=== PATIENT | female | born 1960 | race Caucasian/White ===

== ENCOUNTER 2019-02-08 03:25 | Emergency (ER) | payer BC ==
[2019-02-08 03:48] VITALS: BP 126/76
--- NOTE | 2019-02-08 03:55 | EDM.PDOC ---
ED HPI GENERAL MEDICAL PROBLEM - General Chief Complaint: Back Pain or Injury Stated Complaint: Back Pain Time Seen by Provider: 02/08/19 03:50 Source of Information: Reports: Patient, Family (), Old Records ([facility] chart/EMR), Other ([facility]) History Limitations: Reports: No Limitations - History of Present Illness INITIAL COMMENTS - FREE TEXT/NARRATIVE: The patient was brought to the emergency room via private automobile by her for evaluation of progressive 9-10/10 mostly low back pain, however additional neck pain with nonspecific bilateral arm paresthesias after a minor fall at home at 20:00 hours on 02/05. The patient was on her wooden deck when she tripped over a porcelain frog landing on her buttocks with some mild back pain at that time. The following day she had actually no symptoms at all however has had progressive back pain and muscle spasms since that time. No history of head injury, loss of consciousness, change in mental status, neurological deficits, or other complaints or injuries. Patient did take Tylenol 650 mg at 03:00 hours this morning and ibuprofen 400 mg at 21:30 hours this evening. The patient denies any chest pain/pressure, heart flutter, dizziness, orthostasis, orthopnea, diaphoresis, paresthesias, recent decreased exercise tolerance, or any other anginal-type symptoms. No recent history of abdominal pain, heartburn, nausea, diarrhea, melena, gross hematochezia, or any food intolerance, including fatty foods, etc.. She denies any gross hematuria, colic, or other UTI symptoms. The patient also denies any recent fever, cough, wheezing, dyspnea, etc., although she was diagnosed with otitis externa on 02/05 with current medical therapy as below. Onset: Gradual Onset Date: 02/05/19 Onset Time: 20:00 Duration: Constant Location: Reports: Neck, Back, Radiates to (Arm paresthesias as above). Denies : Head, Face, Chest, Abdomen, Pelvis, Upper Extremity, Left, Upper Extremity, Right, Lower Extremity, Left, Lower Extremity, Right, Generalized Quality: Reports: Same as Previous Episode, Sharp, Throbbing Severity: Severe Improves with: Reports: Rest Worsens with: Reports: Movement Context: Reports: Trauma (As above) Associated Symptoms: Denies: Confusion, Chest Pain, Cough, Diaphoresis, Fever/ Chills, Headaches, Loss of Appetite, Malaise, Nausea/Vomiting, Rash, Seizure, Shortness of Breath, Syncope, Weakness Treatments PUBLICITY EXPERT: Reports: Acetaminophen, Cold Therapy, NSAIDS Neck Pain Score (Numeric/FACES): 10 - Related Data Allergies Allergy/AdvReac Type Severity Reaction Status Date / Time sulfamethoxazole Allergy Intermediate Hives Verified 02/08/19 03:28 [From Bactrim] trimethoprim [From Bactrim] Allergy Intermediate Hives Verified 02/08/19 03:28 hydrochlorothiazide Allergy Rash Verified 02/08/19 03:28 Home Meds: Home Meds Ascorbic Acid [Vitamin C] 500 mg PO DAILY 02/03/14 [History] Biotin 1 cap PO DAILY 02/03/14 [History] Calcium Carbonate/Vitamin D3 [Calcium 600 + Vit D 400] 1 tab PO DAILY 02/03/14 [ History] Multivitamin [Multi-Vitamin Daily] 1 tab PO DAILY 02/03/14 [History] Lisinopril 20 mg PO DAILY 12/19/14 [History] Aspirin [Halfprin] 81 mg PO DAILY #100 12/24/14 [Rx] Carvedilol [Coreg] 3.125 mg PO BID 12/24/14 [History] Acetaminophen [Tylenol] 650 mg PO Q4HR PRN 02/08/19 [History] Cholecalciferol (Vitamin D3) [Vitamin D3] 1,000 units PO DAILY 02/08/19 [History ] Cyclobenzaprine [Flexeril] 10 mg PO TID PRN #30 tab 02/08/19 [Rx] Ezetimibe 10 mg PO DAILY 02/08/19 [History] Furosemide 10 mg PO DAILY 02/08/19 [History] Levothyroxine [Synthroid] 25 mcg PO ACBREAKFAST 02/08/19 [History] Ofloxacin 2 drp EARLF BID 02/08/19 [History] Past Medical History HEENT History: Reports: Allergic Rhinitis, Impaired Vision, Other (See Below). Denies: Cataract, Glaucoma, Hard of Hearing, Macular Degeneration, Otitis Media , Retinal Detachment Other HEENT History: Patient wears glasses. Cardiovascular History: Reports: Arrhythmia, Heart Murmur, High Cholesterol, Hypertension, Other (See Below). Denies: Afib, CAD, IA Other Cardiovascular History: PACs and PVCs. Respiratory History: Reports: COPD, Other (See Below) Other Respiratory History: COPD by chest x-ray with no medical therapy. Gastrointestinal History: Reports: None. 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 Ovarian cysts requiring surgery as below. Full term delivery by C -section with significant preeclampsia during late . Menopause at age 40 with secondary atrophic vaginitis. Musculoskeletal History: Reports: Arthritis, Back Pain, Chronic, Osteoarthritis , Osteoporosis, Other (See Below). Denies: Fracture Other Musculoskeletal History: Chronic back pain secondary to previous fall at age 9 with secondary vertebral body displacements and back brace therapy required. Neurological History: Reports: Other (See Below) Other Neuro History: Mild cerebral atrophy and cerebromicrovascular disease by CT scan in 2014 as below. Psychiatric History: Reports: Anxiety, Depression Endocrine/Metabolic History: Reports: Hypothyroidism, Osteopenia, Vitamin D Deficiency, Other (See Below) Other Endocrine/Metabolic History: Hyponatremia Hematologic History: Reports: None. 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 GI Surgical History: Reports: Colonoscopy, Other (See Below) Other GI Surgeries/Procedures: Colonoscopy on 02/06/14. Female Surgical History: Reports: Section, D&C, Tubal Ligation, Other (See Below) Other Female Surgeries/Procedures: as above. D&C 2 secondary to SABs as above. Tubal ligation her 30s. Abdominal laparoscopic excision of ovarian cysts in 1983. - Past Imaging History Past Imaging History: Reports: Cardiac Echo (Stress echocardiogram on 01/19/15 was negative with ejection fraction of 60%), CAT Scan (CT of the brain on .), DEXA Scan (Last on 02/21/17), Mammogram (Last mammogram on 03/25/16.), Stress Testing (Stress echocardiogram as above) Social & Family History - Family History Cardiac: Reports: Arrhythmia, CAD, IA, Pacemaker, Stent, Other (See Below) Other Cardiac Family History: Maternal grandmother with IA requiring PTCA. Paternal grandfather with pacemaker. Psychiatric: Reports: Anxiety, Depression, Suicide Attempt, Other (See Below) Other Psychiatric Family History: Maternal aunt with anxiety depression disorder with maternal grandfather with successful suicide at age 75. Endocrine/Metabolic: Reports: Diabetes, type II, Hypothyroidism, Other (See Below) Other Endocrine/Metabolic Family History: Maternal grandmother with AODM. Paternal grandmother with hypothyroidism. - Tobacco Use Smoking Status *Q: Never Smoker Tobacco Use Within Last Twelve Months: No Used Tobacco, but Quit: No Smoking Cessation Information Provided To Patient: No Second Hand Smoke Exposure: No Second Hand Smoke Education Provided: No - Alcohol Use Alcohol Use History: Yes Days Per Week of Alcohol Use: 2 Number of Drinks Per Day: 1 Number of Drinks Per Day Comment: Usually wine. No previous DWIs, problems with alcohol abuse, etc. 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 ED EXAM,LOWER BACK PAIN/INJURY - Physical Exam Exam: See Below Exam Limited By: No Limitations General Appearance: Alert, WD/WN, No Apparent Distress Head: Atraumatic, Normocephalic. No: Facial Swelling, Facial Tenderness, Sinus Tenderness Neck: Normal Inspection, Supple, Non-Tender, Full Range of Motion. No: Lymphadenopathy (L), Lymphadenopathy (R), Thyromegaly Respiratory/Chest: No Respiratory Distress, Lungs Clear, Normal Breath Sounds, No Accessory Muscle Use, Chest Non-Tender. No: Pleural Rub, Retractions Cardiovascular: Normal Peripheral Pulses, Regular Rate, Rhythm, No Edema, No Gallop, No JVD, No Murmur, No Rub. No: Gallop/S3, Gallop/S4, Friction Rub GI/Abdominal: Normal Bowel Sounds, Soft, Non-Tender, No Organomegaly, No Distention, No Abnormal Bruit, No Mass, Pelvis Stable. No: Guarding (Female) Exam: Deferred Rectal (Female) Exam: Deferred Back Exam: Decreased Range of Motion (Minimal), Muscle Spasm (Minimal in mid lumbar region), Paraspinal Tenderness (Minimal in mid lumbar region with no significant cervical tenderness or spasms). No: CVA Tenderness (L), CVA Tenderness (R), Vertebral Tenderness Neurological: Alert, Normal Mood/Affect, Normal Dorsiflexion, CN II-XII Intact, Normal Plantar Flexion, Normal Gait, No Motor/Sensory Deficits, Oriented x 3 Psychiatric: Normal Affect, Normal Mood Skin Exam: Warm, Dry, Intact, Normal Color, No Rash. No: Diaphoretic, Wound/ Incision Lymphatic: No Adenopathy Course - Vital Signs Last Recorded V/S: Last Vital Signs Temp 36.4 C 02/08/19 03:48 Pulse 75 02/08/19 03:48 Resp 15 02/08/19 03:48 BP 126/76 02/08/19 03:48 Pulse Ox 100 02/08/19 03:48 Vital Signs - 24 hr 02/08/19 03:48 Temperature [ 36.4 C Temporal] Pulse, 75 Peripheral [ Right Pulse Oximetry] Respiratory 15 Rate Blood Pressure 126/76 [Right Upper Arm] O2 Sat by Pulse 100 Oximetry - Orders/Labs/Meds Labs: None Meds: Medications Discontinued Medications Generic Name Dose Route Start Last Admin Trade Name Freq PRN Reason Stop Dose Admin Cyclobenzaprine HCl 10 mg 02/08/19 04:03 02/08/19 04:15 Flexeril PO 02/08/19 04:04 10 mg ONETIME ONE Administration - Radiology Interpretation Free Text/Narrative:: None Departure - Departure Time of Disposition: 04:25 Disposition: Home, Self-Care 01 Condition: Good Clinical Impression: Mixed anxiety depressive disorder, Hypertension, Hypothyroidism, Osteoarthritis , COPD (chronic obstructive pulmonary disease), Hyperlipidemia, Low back pain - Discharge Information *PRESCRIPTION DRUG MONITORING PROGRAM REVIEWED*: Not Applicable *COPY OF PRESCRIPTION DRUG MONITORING REPORT IN PATIENT KESHAWN: Not Applicable Prescriptions: Cyclobenzaprine [Flexeril] 10 mg PO TID PRN #30 tab PRN Reason: Spasms Instructions: Cyclobenzaprine tablets, Acute Back Pain, Adult Referrals: Cordelia Vieira PA-C [Primary Care Provider] - Forms: ED Department Discharge Additional Instructions: 1. Follow up with your regular provider in 10-14 days as needed, if symptoms persist. Bring these discharge instructions with you to that visit.. 2. Tylenol 650 mg by mouth every 4 hours and/or OTC ibuprofen 2-3 tabs by mouth every 6 hours with food as directed./needed. You may stagger these medications for 48-72 hours only, which essentially means that you are receiving a pain medication about every 2 hours. 3. BenGay or equivalent, heating pad, and/or ice packs as directed. 4. Sedation precautions with Flexeril as discussed. 5. Increase activity as discussed. 6. Immediately after this visit verify that your cellular telephone's voicemail has been activated and is empty. Also verify that your home telephone 's answering machine is operating properly and has space to receive messages. Note that it is sometimes necessary for us to be able to contact you at a later date to discuss your medical care. 7. Please remember that we are ALWAYS here for you and want to answer any questions you may have. Feel free to call the hospital any time and we call you back JONN. - Problem List & Annotations (1) Low back pain SNOMED Code(s): 605243617 Code(s): M54.5 - LOW BACK PAIN Status: Acute Priority: High Onset Date : 02/05/19 Annotation/Comment:: Known history of chronic low back pain in the past. Various therapeutic options were discussed with the patient and her . The patient does not wish to have an IM Ativan and/or IM Toradol injection. Flexeril given in the emergency room, which will be continued as needed as per discharge instructions. Otherwise symptomatic relief. She does not want a work excuse. Secondary to symptom-free period as above no direct indications for x-rays at this time with the patient in agreement with this treatment plan. Qualifiers: Chronicity: acute Back pain laterality: bilateral Sciatica presence: without sciatica Qualified Code(s): M54.5 - Low back pain (2) Osteoarthritis SNOMED Code(s): 224314507 Code(s): M19.90 - UNSPECIFIED OSTEOARTHRITIS, UNSPECIFIED SITE Status: Acute Priority: Medium Annotation/Comment:: Otherwise stable by patient history with OTC ibuprofen use Qualifiers: Osteoarthritis location: multiple joints Osteoarthritis type: primary Qualified Code(s): M15.0 - Primary generalized (osteo)arthritis (3) Mixed anxiety depressive disorder SNOMED Code(s): 668587633 Code(s): F41.8 - OTHER SPECIFIED ANXIETY DISORDERS Status: Acute Priority : Medium Annotation/Comment:: Stable by history. (4) Hyperlipidemia SNOMED Code(s): 35975621 Code(s): E78.5 - HYPERLIPIDEMIA, UNSPECIFIED Status: Chronic Priority: Medium Annotation/Comment:: Currently under therapy Qualifiers: Hyperlipidemia type: unspecified Qualified Code(s): E78.5 - Hyperlipidemia , unspecified (5) Hypertension SNOMED Code(s): 94641405 Code(s): I10 - ESSENTIAL (PRIMARY) HYPERTENSION Status: Acute Priority: High Annotation/Comment:: Currently under therapy. Stable in the emergency room and by history. Qualifiers: Hypertension type: essential hypertension Qualified Code(s): I10 - Essential (primary) hypertension (6) Hypothyroidism SNOMED Code(s): 13524509 Code(s): E03.9 - HYPOTHYROIDISM, UNSPECIFIED Status: Chronic Priority: Medium Onset Date: 12/19/14 Annotation/Comment:: Currently under therapy Qualifiers: Hypothyroidism type: acquired Qualified Code(s): E03.9 - Hypothyroidism, unspecified - Problem List Review Problem List Initiated/Reviewed/Updated: Yes - Assessment/Plan Assessment:: As above Plan: As above. Extensive precautions were given to the patient and her , who are in agreement with the treatment plan. See Patient Instructions for further treatment and plan.
[2019-02-08] MEDS ORDERED: Cyclobenzaprine 10 MG Tab PO ONE (04:03)
== END 2019-02-08 04:25 | disposition home or self-care (01) ==
LOC: LL.ED 03:25
DX: M54.5 Low back pain (principal); M19.90 Unspecified osteoarthritis, unspecified site; F41.8 Other specified anxiety disorders; E78.5 Hyperlipidemia, unspecified; I10 Essential (primary) hypertension; E03.9 Hypothyroidism, unspecified; J44.9 Chronic obstructive pulmonary disease, unspecified; E78.00 Pure hypercholesterolemia, unspecified; Z79.82 Long term (current) use of aspirin; Z79.899 Other long term (current) drug therapy; Z88.2 Allergy status to sulfonamides; Z88.1 Allergy status to other antibiotic agents; Z88.8 Allergy status to other drugs, medicaments and biological substances
CPT/HCPCS: 99283; A9270

== ENCOUNTER 2019-12-05 11:43 | Observation (INO) | payer BC ==
[2019-12-05] MEDS ORDERED: Meclizine 25 MG Tab PO ONE (12:03)
[2019-12-05] MEDS ORDERED: Aspirin 81 MG Tab.Chew PO ONE (12:04)
--- NOTE | 2019-12-05 12:35 | EDM.PDOC ---
ED HPI GENERAL MEDICAL PROBLEM - General Chief Complaint: Cardiovascular Problem Stated Complaint: chest pain dizziness Time Seen by Provider: 12/05/19 12:01 Source of Information: Reports: Patient History Limitations: Reports: No Limitations - History of Present Illness INITIAL COMMENTS - FREE TEXT/NARRATIVE: Patient came to ER for evaluation after experiencing sudden episode of dizziness at home, felt like she was going to pass out. No previous history of similar sensation. Head rotation does not affect lightheadedness. [place] normal this morning when she first woke up. Has been having intermittent chest tightness/burning pain on both sides of sternum for around 3 days. She thought it might be due to her chronic neck and back pain which has been flaring up for 3 weeks. Has been seen by chiropractors and Ortho for the head and back pain and she says that nothing else specifically could be done for it. Nothing specific triggers the chest discomfort. Changes in position/breathing/ eating/burping have no effect on it. No fevers/chills. Eating well. No recent med changes HEENT positive for clear runny nose/eyes which she attributes to allergies. Had brief headache earlier today, now gone. No visual changes/hearing changes. No obvious sore throat/URI complaints. Resp: negative for cough/wheeze/SOB that is new. History of chronic mild intermittent cough. CV: negative for palpitations. Positive for above complaint of chest discomfort and lightheadedness GI negative for acute changes/nausea/emesis/GERD complaints/bowel changes. negative for UTI sx/changes MS: negative for new limb pain/weakness/paresthesias. Skin negative for acute changes. Hx HTN, no other cardiac diagnoses. FamHX + for maternal grandmother who had OH. chest Pain Score (Numeric/FACES): 5 - Related Data Allergies Allergy/AdvReac Type Severity Reaction Status Date / Time sulfamethoxazole Allergy Intermediate Hives Verified 12/05/19 11:43 [From Bactrim] trimethoprim [From Bactrim] Allergy Intermediate Hives Verified 12/05/19 11:43 hydrochlorothiazide Allergy Rash Verified 12/05/19 11:43 Home Meds: Home Meds Ascorbic Acid [Vitamin C] 500 mg PO DAILY 02/03/14 [History] Biotin 1 cap PO DAILY 02/03/14 [History] Calcium Carbonate/Vitamin D3 [Calcium 600 + Vit D 400] 1 tab PO DAILY 02/03/14 [ History] Multivitamin [Multi-Vitamin Daily] 1 tab PO DAILY 02/03/14 [History] Lisinopril 20 mg PO DAILY 12/19/14 [History] Aspirin [Halfprin] 81 mg PO DAILY #100 12/24/14 [Rx] Carvedilol [Coreg] 3.125 mg PO BID 12/24/14 [History] Acetaminophen [Tylenol] 650 mg PO Q4HR PRN 02/08/19 [History] Cholecalciferol (Vitamin D3) [Vitamin D3] 1,000 units PO DAILY 02/08/19 [History ] Cyclobenzaprine [Flexeril] 10 mg PO TID PRN #30 tab 02/08/19 [Rx] Ezetimibe 10 mg PO DAILY 02/08/19 [History] Furosemide 10 mg PO DAILY 02/08/19 [History] Levothyroxine [Synthroid] 25 mcg PO ACBREAKFAST 02/08/19 [History] Ofloxacin 2 drp EARLF BID 02/08/19 [History] Past Medical History HEENT History: Reports: Allergic Rhinitis, Impaired Vision, Other (See Below). Denies: Cataract, Glaucoma, Hard of Hearing, Macular Degeneration, Otitis Media , Retinal Detachment Other HEENT History: Patient wears glasses. Cardiovascular History: Reports: Arrhythmia, Heart Murmur, High Cholesterol, Hypertension, Other (See Below). Denies: Afib, CAD, OH Other Cardiovascular History: PACs and PVCs. Respiratory History: Reports: COPD, Other (See Below) Other Respiratory History: COPD by chest x-ray with no medical therapy. Gastrointestinal History: Reports: None. 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 Ovarian cysts requiring surgery as below. Full term delivery by C -section with significant preeclampsia during late . Menopause at age 40 with secondary atrophic vaginitis. Musculoskeletal History: Reports: Arthritis, Back Pain, Chronic, Osteoarthritis , Osteoporosis, Other (See Below). Denies: Fracture Other Musculoskeletal History: Chronic back pain secondary to previous fall at age 9 with secondary vertebral body displacements and back brace therapy required. Neurological History: Reports: Other (See Below) Other Neuro History: Mild cerebral atrophy and cerebromicrovascular disease by CT scan in 2015 as below. Psychiatric History: Reports: Anxiety, Depression Endocrine/Metabolic History: Reports: Hypothyroidism, Osteopenia, Vitamin D Deficiency, Other (See Below) Other Endocrine/Metabolic History: Hyponatremia Hematologic History: Reports: None. 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 GI Surgical History: Reports: Colonoscopy, Other (See Below) Other GI Surgeries/Procedures: Colonoscopy on 02/06/14. Female Surgical History: Reports: Section, D&C, Tubal Ligation, Other (See Below) Other Female Surgeries/Procedures: as above. D&C 2 secondary to SABs as above. Tubal ligation her 30s. Abdominal laparoscopic excision of ovarian cysts in 1983. - Past Imaging History Past Imaging History: Reports: Cardiac Echo (Stress echocardiogram on 01/19/15 was negative with ejection fraction of 60%), CAT Scan (CT of the brain on .), DEXA Scan (Last on 02/21/17), Mammogram (Last mammogram on 03/25/16.), Stress Testing (Stress echocardiogram as above) Social & Family History - Family History Cardiac: Reports: Arrhythmia, CAD, OH, Pacemaker, Stent, Other (See Below) Other Cardiac Family History: Maternal grandmother with OH requiring PTCA. Paternal grandfather with pacemaker. Psychiatric: Reports: Anxiety, Depression, Suicide Attempt, Other (See Below) Other Psychiatric Family History: Maternal aunt with anxiety depression disorder with maternal grandfather with successful suicide at age 75. Endocrine/Metabolic: Reports: Diabetes, type II, Hypothyroidism, Other (See Below) Other Endocrine/Metabolic Family History: Maternal grandmother with AODM. Paternal grandmother with hypothyroidism. 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 ED EXAM, GENERAL - Physical Exam Exam: See Below Exam Limited By: No Limitations General Appearance: Alert, WD/WN, No Apparent Distress Eye Exam: Bilateral Eye: EOMI, PERRL Ears: Normal External Exam, Normal Canal, Hearing Grossly Normal, Normal TMs Nose: No: Nasal Deformity, Nasal Swelling, Nasal Drainage Throat/Mouth: Normal Lips, Normal Voice, No Airway Compromise Head: Atraumatic, Normocephalic Neck: Normal Inspection, Supple, Non-Tender, Full Range of Motion. No: Lymphadenopathy (L), Lymphadenopathy (R) Respiratory/Chest: No Respiratory Distress, Lungs Clear, Normal Breath Sounds, No Accessory Muscle Use, Chest Non-Tender Cardiovascular: Regular Rate, Rhythm, No Murmur GI/Abdominal: Normal Bowel Sounds, Soft, Non-Tender, No Distention (Female) Exam: Deferred Rectal (Female) Exam: Deferred Back Exam: No: CVA Tenderness (L), CVA Tenderness (R), Muscle Spasm Extremities: Normal Range of Motion, Non-Tender, No Pedal Edema, Normal Capillary Refill Neurological: Alert, Oriented, CN II-XII Intact, Normal Cognition, Normal Gait, No Motor/Sensory Deficits Psychiatric: Normal Affect, Normal Mood Skin Exam: Warm, Dry, Intact, Normal Color Lymphatic: No Adenopathy EKG INTERPRETATION EKG Date: 12/05/19 Time: 11:50 Rhythm: NSR Rate (Beats/Min): 67 [place]: Normal P-Wave: Present QRS: Normal ST-T: Normal QT: Normal Comparison: Change From Previous EKG (Previous EKG showed incomplete RBBB) Course - Vital Signs Last Recorded V/S: Last Vital Signs Temp Pulse 66 12/05/19 11:49 Resp 14 12/05/19 11:49 BP 141/76 H 12/05/19 11:49 Pulse Ox 98 12/05/19 11:49 - Orders/Labs/Meds Orders: Active Orders 24 hr Category Date Time Status EKG Documentation Completion [RC] ASDIRECTED Care 12/05/19 11:54 Active BMP [BASIC METABOLIC PANEL,BMP] [CHEM] Stat Lab 12/05/19 11:55 Ordered CBC WITH AUTO DIFF [HEME] Stat Lab 12/05/19 11:54 Ordered CK W CKMB [CHEM] Stat Lab 12/05/19 11:55 Ordered D-DIMER QUANTITATIVE [COAG] Stat Lab 12/05/19 12:01 Ordered MG [MAGNESIUM] [CHEM] Stat Lab 12/05/19 12:01 Ordered PRO B-TYPE NATRIUR PEPT,BNPPRO [CHEM] Stat Lab 12/05/19 12:02 Ordered TROPONIN I [CHEM] Stat Lab 12/05/19 11:55 Ordered EKG 12 Lead [EK] Stat Ther 12/05/19 11:54 Ordered - Radiology Interpretation Free Text/Narrative:: No focal acute changes noted on review of chest film - Re-Assessments/Exams Free Text/Narrative Re-Assessment/Exam: 12/05/19 12:56 Cardiac workup initiated given complaint of chest discomfort and lightheaded/ near-syncopal sensation. EKG unremarkable. Vital signs stable, however BP continues to be elevated compared to patient's self reported normal level of 115-120/70s. Troponin/DDimer normal. No focal findings on exam. Patient continued to say that she felt a bit funny and pointed to top of head, indicating light headed sensation. Again, movement did not affect this. She denied feeling vaso-vagal however. Plan is to admit and observe for changes. Serial Troponins. Cardiac monitoring. Departure - Departure Time of Disposition: 13:00 Disposition: Refer to Observation Condition: Good Clinical Impression: Atypical chest pain, Lightheadedness Sepsis Event Note - Evaluation Sepsis Screening Result: No Definite Risk - Focused Exam Vital Signs: Vital Signs Pulse Resp BP Pulse Ox 12/05/19 11:49 66 14 141/76 H 98 Date Exam was Performed: 12/05/19 Time Exam was Performed: 12:02 - Problem List & Annotations (1) Atypical chest pain SNOMED Code(s): 999672897 Code(s): R07.89 - OTHER CHEST PAIN Status: Acute Priority: High Onset Date: ~12/02/19 Annotation/Comment:: Anterior chest discomfort, bilateral, located at lateral margins of sternum. Episodic. No specific triggers. Nothing makes it particularly better. May be musculo-skeletal in nature, related to patient's chronic neck and upper back pain which has flared over the last 3 weeks. No obvious GI characteritics. Unable to reproduce with palpation. Negative Troponin. Normal EKG. Admit and perform serial Troponin measurements and continue cardiac monitoring to more fully rule out cardiac contribution. (2) Lightheadedness SNOMED Code(s): 012472891 Code(s): R42 - DIZZINESS AND GIDDINESS Status: Acute Priority: High Onset Date: ~12/05/19 Annotation/Comment:: Unable to reproduce/exacerbate with head rotation. Not triggered by positional changes of head/neck. No specific cause identified at this time. Has improved since first noted by patient. Mild hyponatremia identified. Hx intermittent PACs/PVCs but not present when patient complaining of lightheaded sensation. Patient declined head CT at this time to look for acute intracranial changes. Admit observation. Watch for further changes. Telemetry. IV fluids. (3) Hyponatremia SNOMED Code(s): 94338157 Code(s): E87.1 - HYPO-OSMOLALITY AND HYPONATREMIA Status: Acute Priority : Medium Onset Date: ~12/05/19 Annotation/Comment:: Mild. IV fluids ordered. Recheck level tomorrow. (4) Mixed anxiety depressive disorder SNOMED Code(s): 187055375 Code(s): F41.8 - OTHER SPECIFIED ANXIETY DISORDERS Status: Chronic Priority: Low Annotation/Comment:: Stable by history. Patient denies feeling increased anxiety recently. (5) Hyperlipidemia SNOMED Code(s): 29986121 Code(s): E78.5 - HYPERLIPIDEMIA, UNSPECIFIED Status: Chronic Priority: Low Annotation/Comment:: Currently under therapy Qualifiers: Hyperlipidemia type: unspecified Qualified Code(s): E78.5 - Hyperlipidemia , unspecified (6) Osteoarthritis SNOMED Code(s): 110348148 Code(s): M19.90 - UNSPECIFIED OSTEOARTHRITIS, UNSPECIFIED SITE Status: Acute Priority: Medium Annotation/Comment:: Increase in baseline neck and upper back pain for three weeks. No specific trigger. Has been seen by chiropractors and Ortho in past, told nothing else could be done for her discomfort. Qualifiers: Osteoarthritis location: multiple joints Osteoarthritis type: primary (7) Hypertension SNOMED Code(s): 34882586 Code(s): I10 - ESSENTIAL (PRIMARY) HYPERTENSION Status: Acute Priority: High Annotation/Comment:: Mildly elevated over usual baseline today. Normally runs 115-120/70s per self report. Observe for changes. Qualifiers: Hypertension type: essential hypertension Qualified Code(s): I10 - Essential (primary) hypertension (8) Hypothyroidism SNOMED Code(s): 10224396 Code(s): E03.9 - HYPOTHYROIDISM, UNSPECIFIED Status: Chronic Priority: Low Onset Date: 12/19/14 Annotation/Comment:: Currently under therapy. Normal TSH today Qualifiers: Hypothyroidism type: acquired Qualified Code(s): E03.9 - Hypothyroidism, unspecified - Problem List Review Problem List Initiated/Reviewed/Updated: Yes - My Orders Last 24 Hours: My Active Orders 12/05/19 11:54 EKG Documentation Completion [RC] ASDIRECTED CBC WITH AUTO DIFF [HEME] Stat EKG 12 Lead [EK] Stat 12/05/19 11:55 BMP [BASIC METABOLIC PANEL,BMP] [CHEM] Stat CK W CKMB [CHEM] Stat TROPONIN I [CHEM] Stat 12/05/19 12:01 D-DIMER QUANTITATIVE [COAG] Stat MG [MAGNESIUM] [CHEM] Stat 12/05/19 12:02 PRO B-TYPE NATRIUR PEPT,BNPPRO [CHEM] Stat - Assessment/Plan Admission H&P: Please use this note as an admission H&P Last 24 Hours: My Active Orders 12/05/19 11:54 EKG Documentation Completion [RC] ASDIRECTED CBC WITH AUTO DIFF [HEME] Stat EKG 12 Lead [EK] Stat 12/05/19 11:55 BMP [BASIC METABOLIC PANEL,BMP] [CHEM] Stat CK W CKMB [CHEM] Stat TROPONIN I [CHEM] Stat 12/05/19 12:01 D-DIMER QUANTITATIVE [COAG] Stat MG [MAGNESIUM] [CHEM] Stat 12/05/19 12:02 PRO B-TYPE NATRIUR PEPT,BNPPRO [CHEM] Stat Assessment:: as above. Stable for general supervision/observation. Plan: as above.
[2019-12-05 12:44] LABS: CHLORIDE,CL 94 mmol/L (98-107); SODIUM,NA 130 mmol/L (136-145)
[2019-12-05] MEDS ORDERED: Diazepam 5 MG Tab PO ONE (14:24)
[2019-12-05] MEDS ORDERED: Acetaminophen 325 MG Tab PO PRN (14:24)
[2019-12-05] MEDS ORDERED: traMADol 50 MG Tab PO PRN (14:30)
[2019-12-05] MEDS: Sodium Chloride 0.9% 1,000 ML IV SCH (14:47)
[2019-12-05] MEDS: Carvedilol 3.125 MG Tab PO SCH (17:24)
[2019-12-05] MEDS ORDERED: Meclizine 25 MG Tab PO PRN (19:00)
[2019-12-05] MEDS ORDERED: Ezetimibe 10 MG Tab PO SCH (20:00)
[2019-12-05] MEDS: Sodium Chloride 0.9% 10 ML Syringe FLUSH SCH (20:00)
[2019-12-06] MEDS: Sodium Chloride 0.9% 1,000 ML IV SCH (00:57)
[2019-12-06] MEDS ORDERED: Levothyroxine 25 MCG Tab PO SCH (07:30)
[2019-12-06 07:58] LABS: CHLORIDE,CL 103 mmol/L (98-107); SODIUM,NA 136 mmol/L (136-145)
[2019-12-06] MEDS ORDERED: BIOTIN PO SCH (08:00)
[2019-12-06] MEDS ORDERED: Lisinopril 20 MG Tab PO SCH (08:00)
[2019-12-06] MEDS ORDERED: Furosemide 20 MG Tab PO SCH (08:00)
[2019-12-06] MEDS ORDERED: Aspirin 81 MG Tab.EC PO SCH (08:00)
[2019-12-06] MEDS: Sodium Chloride 0.9% 10 ML Syringe FLUSH SCH (08:32)
[2019-12-06] MEDS: Carvedilol 3.125 MG Tab PO SCH (08:34)
[2019-12-06 08:36] VITALS: BP 109/69; PULSE 70
[2019-12-06] MEDS ORDERED: Magnesium Oxide 400 MG Tab PO ONE (11:26)
--- NOTE | 2019-12-06 11:32 | PCM.DCSUM1 ---
Discharge Summary - Hospital Course Brief History: Admitted observation due to complaints of dizziness and atypical chest pain Diagnosis: Stroke: No - Discharge Data Discharge Date: 12/06/19 Discharge Disposition: Home, Self-Care 01 Condition: Good - Referral to Home Health Primary Care Physician: PCP None - Discharge Diagnosis/Problem(s) (1) Atypical chest pain SNOMED Code(s): 216045155 ICD Code: R07.89 - OTHER CHEST PAIN Status: Acute Priority: High Current Visit: No Onset Date: ~12/02/19 Problem Details: Improved today. Anterior chest discomfort, bilateral, located at lateral margins of sternum. Episodic. No specific triggers. Nothing makes it particularly better. May be musculo-skeletal/radicular in nature, related to patient's chronic neck and upper back pain which has flared over the last 3 weeks. No obvious GI characteritics. Unable to reproduce with palpation. Negative Troponins. Normal EKGs. To follow up closely with primary provider. (2) Lightheadedness SNOMED Code(s): 271350980 ICD Code: R42 - DIZZINESS AND GIDDINESS Status: Acute Priority: High Current Visit: No Onset Date: ~12/05/19 Problem Details: Resolved today after patient received IV fluids. Suspect related to hyponatremia which improved s/p IV fluids. Patient had similar symptoms in past when hyponatremic. At that time she was hospitalized in [place]. (3) Hyponatremia SNOMED Code(s): 94495669 ICD Code: E87.1 - HYPO-OSMOLALITY AND HYPONATREMIA Status: Acute Priority : Medium Current Visit: No Onset Date: ~12/05/19 Problem Details: Level normalized today after receiving IV fluids (4) Mixed anxiety depressive disorder SNOMED Code(s): 270110091 ICD Code: F41.8 - OTHER SPECIFIED ANXIETY DISORDERS Status: Acute Priority: Low Current Visit: No Problem Details: Stable by history. Patient denies feeling increased anxiety recently. (5) Hyperlipidemia SNOMED Code(s): 16527812 ICD Code: E78.5 - HYPERLIPIDEMIA, UNSPECIFIED Status: Chronic Priority: Low Current Visit: No Problem Details: Currently under therapy Qualifiers: Hyperlipidemia type: unspecified Qualified Code(s): E78.5 - Hyperlipidemia , unspecified (6) Osteoarthritis SNOMED Code(s): 589213871 ICD Code: M19.90 - UNSPECIFIED OSTEOARTHRITIS, UNSPECIFIED SITE Status: Acute Priority: Medium Current Visit: No Problem Details: Increase in baseline neck and upper back pain for three weeks. No specific trigger. Has been seen by chiropractors and Ortho in past, told nothing else could be done for her discomfort. Qualifiers: Osteoarthritis location: multiple joints Osteoarthritis type: primary Qualified Code(s): M89.49 - Other hypertrophic osteoarthropathy, multiple sites (7) Hypertension SNOMED Code(s): 56021440 ICD Code: I10 - ESSENTIAL (PRIMARY) HYPERTENSION Status: Acute Priority: High Current Visit: No Problem Details: Mildly elevated over usual baseline today. Normally runs 115-120/70s per self report. Observe for changes. Qualifiers: Hypertension type: essential hypertension Qualified Code(s): I10 - Essential (primary) hypertension (8) Hypothyroidism SNOMED Code(s): 05402363 ICD Code: E03.9 - HYPOTHYROIDISM, UNSPECIFIED Status: Chronic Priority: Low Current Visit: No Onset Date: 12/19/14 Problem Details: Currently under therapy. Normal TSH today Qualifiers: Hypothyroidism type: acquired Qualified Code(s): E03.9 - Hypothyroidism, unspecified - Patient Summary/Data Hospital Course: Patient monitored by telemetry. IV fluids to correct hyponatremia. Labs repeated this morning, including Troponin. WBC and Na normalized. Patient's dizziness/lightheadedness fully resolved. Still has some intermittent discomfort along sides of sternum bilaterally. No new complaints/changes. OK to discharge home. Close follow up with primary provider regarding ongoing sodium levels/rechecks and pain complaints. - Patient Instructions Diet: Anti-Inflammatory (feel free to add sea salt liberally. ) Activity: As Tolerated Driving: May Drive Today Showering/Bathing: May Shower Other/Special Instructions: Continue to routinely monitor your electrolyte levels, especially sodium so that you can avoid future similar episodes! Follow up with your primary provider next week to get them rechecked and also to see how your neck/back/sternal discomfort is doing. Return to the ER as needed if you have sudden worsening problems/new developments. - Discharge Plan *PRESCRIPTION DRUG MONITORING PROGRAM REVIEWED*: Not Applicable *COPY OF PRESCRIPTION DRUG MONITORING REPORT IN PATIENT KESHAWN: Not Applicable Home Medications: Home Meds Ascorbic Acid [Vitamin C] 500 mg PO DAILY 02/03/14 [History] Biotin 1 cap PO DAILY 02/03/14 [History] Calcium Carbonate/Vitamin D3 [Calcium 600 + Vit D 400] 1 tab PO DAILY 02/03/14 [ History] Multivitamin [Multi-Vitamin Daily] 1 tab PO DAILY 02/03/14 [History] Lisinopril 20 mg PO DAILY 12/19/14 [History] Aspirin [Halfprin] 81 mg PO DAILY #100 12/24/14 [Rx] Carvedilol [Coreg] 3.125 mg PO BID 12/24/14 [History] Acetaminophen [Tylenol] 650 mg PO Q4HR PRN 02/08/19 [History] Cholecalciferol (Vitamin D3) [Vitamin D3] 1,000 units PO DAILY 02/08/19 [History ] Cyclobenzaprine [Flexeril] 10 mg PO TID PRN #30 tab 02/08/19 [Rx] Ezetimibe 10 mg PO BEDTIME 02/08/19 [History] Furosemide 10 mg PO DAILY 02/08/19 [History] Levothyroxine [Synthroid] 25 mcg PO ACBREAKFAST 02/08/19 [History] Forms: ED Department Discharge Referrals: PCP,None [Primary Care Provider] - - Discharge Summary/Plan Comment DC Time >30 min.: No - General Info Date of Service: 12/06/19 Admission Dx/Problem (Free Text: Atypical chest pain, dizziness, hyponatremia Subjective Update: Patient feels much better today. Would like to go home. Functional Status: Reports: Pain Controlled, Tolerating Diet, Ambulating, Urinating. Denies: New Symptoms - Review of Systems General: Reports: No Symptoms HEENT: Reports: No Symptoms, Glasses Pulmonary: Reports: No Symptoms Cardiovascular: Reports: Other (mild intermittent pain lateral margins sternum) . Denies: Palpitations, Dyspnea on Exertion, Orthopnea, PND, Edema, Lightheadedness Gastrointestinal: Reports: No Symptoms Genitourinary: Reports: No Symptoms Musculoskeletal: Reports: Neck Pain (chronic), Back Pain (chronic/upper back) Skin: Reports: No Symptoms Neurological: Reports: No Symptoms Psychiatric: Reports: No Symptoms - Patient Data Vitals - Most Recent: Last Vital Signs Temp 36.7 C 12/06/19 06:00 Pulse 70 12/06/19 08:34 Resp 14 12/06/19 06:00 BP 109/69 04/24/20 08:34 Pulse Ox 96 12/06/19 06:00 Orthostatic Blood Pressure [ 125/83 Standing] Orthostatic Blood Pressure [ 140/85 Sitting] Orthostatic Blood Pressure [ 142/84 Supine] Weight - Most Recent: 59.148 kg I&O - Last 24 hours: Intake & Output 12/05/19 12/06/19 12/06/19 22:59 06:59 14:59 Intake Total 347 1058 Balance 347 1058 Lab Results - Last 24 hrs: Laboratory Results - last 24 hr 12/05/19 12/05/19 12/05/19 Range/Units 12:05 12:05 12:05 WBC 10.4 H (4.0-10.2) K/uL RBC 3.74 L (3.77-5.09) M/uL Hgb 12.2 D (11.7-15.5) g/dL Hct 35.2 (34.0-46.0) % MCV 94.1 (84.0-98.0) fL MCH 32.6 (28.2-33.3) pg MCHC 34.7 (31.7-36.0) g/dL RDW 13.0 (11.2-14.1) % Plt Count 409 H (150-350) K/uL Neut % (Auto) 61.6 (45.0-80.0) % Lymph % (Auto) 29.8 (10.0-50.0) % [place] % (Auto) 6.5 (2.0-14.0) % Eos % (Auto) 1.7 (0.0-5.0) % Baso % (Auto) 0.4 (0.0-2.0) % Neut # (Auto) 6.39 (1.40-7.00) K/uL Lymph # (Auto) 3.09 (0.50-3.50) K/uL [place] # (Auto) 0.67 (0.00-1.00) K/uL Eos # (Auto) 0.18 (0.00-0.50) K/uL Baso # (Auto) 0.04 (0.00-0.20) K/uL D-Dimer, Quantitative < 100 (0-400) ng/mL Sodium 130 L (136-145) mmol/L Potassium 4.1 (3.5-5.1) mmol/L Chloride 94 L (98-107) mmol/L Carbon Dioxide 22.1 (21.0-32.0) mmol/L BUN 21 H (7-18) mg/dL Creatinine 0.56 (0.51-1.17) mg/dL Est Cr Clr Drug Dosing 97.33 mL/min Estimated GFR (MDRD) > 60 mL/min Glucose 124 H (74-106) mg/dL Calcium 9.2 (8.5-10.1) mg/dL Magnesium 2.0 (1.8-2.4) mg/dL Creatine Kinase 94 (26-308) U/L Creatine Kinase Index 1.8 (0.0-2.5) % CK-MB (CK-2) 1.70 (0.00-3.60) ng/mL Troponin I 0.000 (0.000-0.056) ng/mL NT-Pro-B Natriuret Pep (0-125) pg/mL TSH, Ultra Sensitive (0.358-3.740) mIU/mL Specimen Type Urine Color Urine Appearance Urine pH (5.0-9.0) Ur Specific [place] (1.005-1.030) Urine Protein (NEGATIVE) mg/dL Urine Glucose (UA) (NEGATIVE) mg/dL Urine Ketones (NEGATIVE) mg/dL Urine Occult Blood (NEGATIVE) Urine Nitrite (NEGATIVE) Urine Bilirubin (NEGATIVE) Urine Urobilinogen (0.2-1.0) E.U./dL Ur Leukocyte Esterase (NEGATIVE) Urine RBC /HPF Urine WBC /HPF Urine Bacteria (NONE TO FEW) /HPF 12/05/19 12/05/19 12/06/19 Range/Units 12:05 13:20 07:23 WBC 8.2 (4.0-10.2) K/uL RBC 3.54 L (3.77-5.09) M/uL Hgb 11.4 L (11.7-15.5) g/dL Hct 34.2 (34.0-46.0) % MCV 96.6 (84.0-98.0) fL MCH 32.2 (28.2-33.3) pg MCHC 33.3 (31.7-36.0) g/dL RDW 13.4 (11.2-14.1) % Plt Count 371 H (150-350) K/uL Neut % (Auto) 49.1 (45.0-80.0) % Lymph % (Auto) 36.0 (10.0-50.0) % [place] % (Auto) 11.8 (2.0-14.0) % Eos % (Auto) 2.6 (0.0-5.0) % Baso % (Auto) 0.5 (0.0-2.0) % Neut # (Auto) 4.02 (1.40-7.00) K/uL Lymph # (Auto) 2.94 (0.50-3.50) K/uL [place] # (Auto) 0.96 (0.00-1.00) K/uL Eos # (Auto) 0.21 (0.00-0.50) K/uL Baso # (Auto) 0.04 (0.00-0.20) K/uL D-Dimer, Quantitative (0-400) ng/mL Sodium (136-145) mmol/L Potassium (3.5-5.1) mmol/L Chloride (98-107) mmol/L Carbon Dioxide (21.0-32.0) mmol/L BUN (7-18) mg/dL Creatinine (0.51-1.17) mg/dL Est Cr Clr Drug Dosing mL/min Estimated GFR (MDRD) mL/min Glucose (74-106) mg/dL Calcium (8.5-10.1) mg/dL Magnesium (1.8-2.4) mg/dL Creatine Kinase (26-308) U/L Creatine Kinase Index (0.0-2.5) % CK-MB (CK-2) (0.00-3.60) ng/mL Troponin I (0.000-0.056) ng/mL NT-Pro-B Natriuret Pep 108 (0-125) pg/mL TSH, Ultra Sensitive 2.207 (0.358-3.740) mIU/mL Specimen Type [place]rin[place]ad Urine Color Yellow Urine Appearance Clear Urine pH 6.0 (5.0-9.0) Ur Specific [place] 1.010 (1.005-1.030) Urine Protein Negative (NEGATIVE) mg/dL Urine Glucose (UA) Negative (NEGATIVE) mg/dL Urine Ketones Trace H (NEGATIVE) mg/dL Urine Occult Blood Negative (NEGATIVE) Urine Nitrite Negative (NEGATIVE) Urine Bilirubin Negative (NEGATIVE) Urine Urobilinogen 0.2 (0.2-1.0) E.U./dL Ur Leukocyte Esterase Negative (NEGATIVE) Urine RBC Not seen /HPF Urine WBC Not seen /HPF Urine Bacteria Not seen (NONE TO FEW) /HPF 12/06/19 Range/Units 07:23 WBC (4.0-10.2) K/uL RBC (3.77-5.09) M/uL Hgb (11.7-15.5) g/dL Hct (34.0-46.0) % MCV (84.0-98.0) fL MCH (28.2-33.3) pg MCHC (31.7-36.0) g/dL RDW (11.2-14.1) % Plt Count (150-350) K/uL Neut % (Auto) (45.0-80.0) % Lymph % (Auto) (10.0-50.0) % [place] % (Auto) (2.0-14.0) % Eos % (Auto) (0.0-5.0) % Baso % (Auto) (0.0-2.0) % Neut # (Auto) (1.40-7.00) K/uL Lymph # (Auto) (0.50-3.50) K/uL [place] # (Auto) (0.00-1.00) K/uL Eos # (Auto) (0.00-0.50) K/uL Baso # (Auto) (0.00-0.20) K/uL D-Dimer, Quantitative (0-400) ng/mL Sodium 136 (136-145) mmol/L Potassium 4.2 (3.5-5.1) mmol/L Chloride 103 (98-107) mmol/L Carbon Dioxide 25.4 (21.0-32.0) mmol/L BUN 11 (7-18) mg/dL Creatinine 0.54 (0.51-1.17) mg/dL Est Cr Clr Drug Dosing 104.74 mL/min Estimated GFR (MDRD) > 60 mL/min Glucose 113 H (74-106) mg/dL Calcium 8.5 (8.5-10.1) mg/dL Magnesium (1.8-2.4) mg/dL Creatine Kinase (26-308) U/L Creatine Kinase Index (0.0-2.5) % CK-MB (CK-2) (0.00-3.60) ng/mL Troponin I 0.000 (0.000-0.056) ng/mL NT-Pro-B Natriuret Pep (0-125) pg/mL TSH, Ultra Sensitive (0.358-3.740) mIU/mL Specimen Type Urine Color Urine Appearance Urine pH (5.0-9.0) Ur Specific [place] (1.005-1.030) Urine Protein (NEGATIVE) mg/dL Urine Glucose (UA) (NEGATIVE) mg/dL Urine Ketones (NEGATIVE) mg/dL Urine Occult Blood (NEGATIVE) Urine Nitrite (NEGATIVE) Urine Bilirubin (NEGATIVE) Urine Urobilinogen (0.2-1.0) E.U./dL Ur Leukocyte Esterase (NEGATIVE) Urine RBC /HPF Urine WBC /HPF Urine Bacteria (NONE TO FEW) /HPF Med Orders - Current: Current Medications Acetaminophen (Tylenol) 650 mg PO Q4HR PRN PRN Reason: Pain Aspirin (Halfprin) 81 mg PO DAILY [facility] Last Admin: 12/06/19 08:34 Dose: 81 mg Carvedilol (Coreg) 3.125 mg PO BID [facility] Last Admin: 12/06/19 08:34 Dose: 3.125 mg Ezetimibe (Zetia) 10 mg PO BEDTIME [facility] Last Admin: 12/05/19 20:00 Dose: 10 mg Furosemide (Lasix) 10 mg PO DAILY [facility] Last Admin: 12/06/19 08:34 Dose: 10 mg Sodium Chloride (Normal Saline) 1,000 mls @ 100 mls/hr IV ASDIRECTED [facility] Last Admin: 12/06/19 00:57 Dose: 100 mls/hr Levothyroxine Sodium (Levothyroxine) 25 mcg PO ACBREAKFAST [facility] Last Admin: 12/06/19 08:34 Dose: 25 mcg Lisinopril (Prinivil) 20 mg PO DAILY [facility] Last Admin: 12/06/19 08:34 Dose: 20 mg Magnesium Oxide (Magnesium Oxide) 800 mg PO ONETIME ONE Stop: 12/06/19 11:27 Meclizine HCl (Antivert) 25 mg PO Q6H PRN PRN Reason: Dizziness Sodium Chloride (Saline Flush) 10 ml FLUSH Q12HR [facility] Last Admin: 12/06/19 08:32 Dose: Not Given Tramadol HCl (Ultram) 50 mg PO Q8H PRN PRN Reason: Pain Last Admin: 12/05/19 22:05 Dose: 50 mg Discontinued Medications Aspirin (Aspirin) 324 mg PO ONETIME ONE Stop: 12/05/19 12:05 Last Admin: 12/05/19 13:21 Dose: 324 mg Diazepam (Valium.) 5 mg PO ONETIME ONE Stop: 12/05/19 14:25 Last Admin: 12/05/19 14:46 Dose: 5 mg Meclizine HCl (Antivert) 25 mg PO ONETIME ONE Stop: 12/05/19 12:04 Last Admin: 12/05/19 13:21 Dose: 25 mg Non-Formulary Medication (Biotin [Biotin]) 1 cap PO DAILY [facility]ANY - Exam General: Reports: Alert, Oriented, Cooperative, No Acute Distress HEENT: Reports: Pupils Equal, Pupils Reactive, EOMI, Mucous Membr. Moist/[place] Neck: Reports: Supple Lungs: Reports: Clear to Auscultation, Normal Respiratory Effort Cardiovascular: Reports: Regular Rate, Regular Rhythm GI/Abdominal Exam: Normal Bowel Sounds, Soft, Non-Tender, No Distention (Female) Exam: Deferred Rectal (Female) Exam: Deferred Back Exam: Reports: Other (no significant discomfort observed with palpation of back/spine). Denies: Muscle Spasm Extremities: Normal Range of Motion, Non-Tender, Normal Capillary Refill Skin: Reports: Warm, Dry, Intact Neurological: Reports: No New Focal Deficit Psy/Mental Status: Reports: Alert, Normal Affect, Normal Mood EKG INTERPRETATION EKG Date: 12/06/19 Time: 07:41 Rhythm: NSR Rate (Beats/Min): 62 [place]: Normal P-Wave: Present QRS: Other (lower voltage) ST-T: Normal QT: Normal Comparison: Other: (mild decrease in voltage QRS today vs yesterday)
== END 2019-12-06 12:45 | disposition home or self-care (01) ==
LOC: LL.ED 11:43 → LL.MS 13:41 → UNDOADMOB 13:41 → LL.MS 14:26
PROVIDERS: ADMIT Emergency Medicine; ATTEND Emergency Medicine
DX: R07.89 Other chest pain (principal); R42 Dizziness and giddiness; E87.1 Hypo-osmolality and hyponatremia; J44.9 Chronic obstructive pulmonary disease, unspecified; E03.9 Hypothyroidism, unspecified; I10 Essential (primary) hypertension; F41.8 Other specified anxiety disorders; E78.00 Pure hypercholesterolemia, unspecified; E78.5 Hyperlipidemia, unspecified; M89.49 Other hypertrophic osteoarthropathy, multiple sites; M19.90 Unspecified osteoarthritis, unspecified site; Z88.1 Allergy status to other antibiotic agents; Z88.8 Allergy status to other drugs, medicaments and biological substances; Z79.82 Long term (current) use of aspirin; Z79.899 Other long term (current) drug therapy; Z79.890 Hormone replacement therapy
CPT/HCPCS: 36415; 71046; 80048; 81001; 82550; 82553; 83735; 83880; 84443; 84484; 85025; 85379; 93005; 96360; 96361; 99285-25; A9270-GY; G0378; J7030